=== PATIENT | male | born 1990 | race African-American/Black ===

== ENCOUNTER 2017-02-07 03:52 | Inpatient (IN) | payer MEDICAID ==
[~2017-02-07] VITALS: Ht 167.6 cm; Wt 45.4 kg
[~2017-02-07 03:52] MED LIST: EMTR1TAB11 PO; KEPP500 PO; SULF1TAB47 PO
[2017-02-07] MEDS ORDERED: ONDANSETRON HCL 4MG/2ML VIAL IV STA (04:30)
[2017-02-07] MEDS ORDERED: SODIUM CHLORIDE 0.9% 1000ML BAG (SEPSIS BOLUS) IV ONE (04:30)
[2017-02-07] MEDS ORDERED: MORPHINE SULFATE 4 MG/ML CPJ (NOT FOR IM USE) IV STA (04:30)
[2017-02-07 05:06] LABS: HEMATOCRIT. 30.7 % (42.0-52.0); HEMOGLOBIN. 9.8 g/dL (14.0-18.0); MEAN CORPUSCULAR HEMOGLOBIN 25.8 pg (28.0-32.0); MEAN CORPUSCULAR VOLUME 81.1 fL (80.0-94.0); MEAN PLATELET VOLUME 7.8 fl (7.4-10.4); PLATELET 261 x1000/uL (130-400); RED BLOOD CELL COUNT 3.79 mill/uL (4.7-6.1); RED CELL DISTRIBUTION WIDTH 17.4 % (11.6-14.6)
[2017-02-07 05:14] LABS: INR 1.1; PROTHROMBIN TIME 11.8 sec
[2017-02-07 05:19] LABS: CARBON DIOXIDE 28 mEq/L (21-32); CHLORIDE 98 mEq/L (98-107)
[2017-02-07 05:45] LABS: PLATELET ESTIMATE NORMAL
[2017-02-07 09:40] VITALS: BP 122/96
[2017-02-07] MEDS ORDERED: ONDANSETRON HCL 4MG/2ML VIAL IV PRN (11:15)
[2017-02-07] MEDS ORDERED: DOCUSATE SODIUM 100MG CAPSULE PO PRN (11:15)
[2017-02-07] MEDS ORDERED: MORPHINE SULFATE 2 MG/ML CPJ (NOT FOR IM USE) IV PRN (11:15)
[2017-02-07] MEDS ORDERED: HYDROCODONE/ACETAMINOPHEN 5/325MG TABLET PO PRN (11:15)
[2017-02-07] MEDS: SODIUM CHLORIDE 0.9% 1,000 ML IV SCH (11:30)
[2017-02-07 12:00] VITALS: BP 124/94
[2017-02-07] MEDS: FERROUS SULFATE 325MG TABLET PO SCH (12:28)
[2017-02-07] MEDS: MULTIVITAMINS,THER W-MINERALS TABLET PO SCH (12:29)
[2017-02-07] MEDS ORDERED: SULFAMETHOXAZOLE/TRIMETHOPRIM 400/80MG TAB PO SCH (12:30)
[2017-02-07] MEDS ORDERED: EMTRICITABINE 200MG CAPSULE PO SCH (14:00)
[2017-02-07] MEDS ORDERED: TENOFOVIR 300MG TABLET PO SCH (14:00)
[2017-02-07 16:00] VITALS: BP 113/83
[2017-02-07] MEDS: ACETAMINOPHEN 325MG TABLET PO PRN (16:58)
[2017-02-07] MEDS ORDERED: POTASSIUM CHLORIDE 20MEQ TABLET SR PO NR (18:15)
[2017-02-07 20:00] VITALS: BP 107/81
[2017-02-07] MEDS: LEVETIRACETAM 500MG TABLET PO SCH (20:26)
[2017-02-07] MEDS: MORPHINE SULFATE 2 MG/ML CPJ (NOT FOR IM USE) IV PRN (20:27)
[2017-02-07] MEDS ORDERED: ZOLPIDEM TARTRATE 5MG TABLET PO PRN (21:00)
[2017-02-08] VITALS: BP 108/76
[2017-02-08 04:00] VITALS: BP 111/88
[2017-02-08] MEDS: SODIUM CHLORIDE 0.9% 500 ML IV SCH ×2 (05:09→10:32)
[2017-02-08 06:50] LABS: HEMATOCRIT. 30.2 % (42.0-52.0); HEMOGLOBIN. 9.8 g/dL (14.0-18.0); MEAN CORPUSCULAR HEMOGLOBIN 26.2 pg (28.0-32.0); MEAN PLATELET VOLUME 7.9 fl (7.4-10.4); PLATELET 296 x1000/uL (130-400); RED BLOOD CELL COUNT 3.72 mill/uL (4.7-6.1); RED CELL DISTRIBUTION WIDTH 17.6 % (11.6-14.6)
[2017-02-08] MEDS: OMEPRAZOLE 20MG CAPSULE EXTENDED RELEASE PO SCH (07:03)
[2017-02-08 07:15] LABS: CARBON DIOXIDE 28 mEq/L (21-32); CHLORIDE 97 mEq/L (98-107); PHOSPHORUS 2.9 mg/dL (2.5-4.9)
[2017-02-08] MEDS: ACETAMINOPHEN 325MG TABLET PO SCH (07:30)
[2017-02-08 08:00] VITALS: BP 111/89
[2017-02-08] MEDS: AMPHOTERICIN B LIPOSOME IV SCH (08:00)
[2017-02-08] MEDS: DEXT 5% IV SCH (08:00)
[2017-02-08] MEDS: WATER IV SCH (08:00)
[2017-02-08] MEDS: FERROUS SULFATE 325MG TABLET PO SCH (08:17)
[2017-02-08] MEDS: MULTIVITAMINS,THER W-MINERALS TABLET PO SCH (08:18)
[2017-02-08] MEDS: LEVETIRACETAM 500MG TABLET PO SCH ×2 (08:18→22:07)
[2017-02-08] MEDS: MORPHINE SULFATE 2 MG/ML CPJ (NOT FOR IM USE) IV PRN ×2 (08:57→14:41)
[2017-02-08] MEDS ORDERED: AZITHROMYCIN 500 MG TABLET PO SCH (09:00)
[2017-02-08] MEDS ORDERED: MEDICATION NOT ON FORMULARY EA (Emtricitabine/Tenofovir (Truvada 200 Mg-300 Mg Tablet) 1 PO SCH (09:00)
[2017-02-08] MEDS ORDERED: FLUCYTOSINE PO SCH (09:00)
[2017-02-08 09:58] LABS: PLATELET ESTIMATE NORMAL
[2017-02-08 11:52] VITALS: BP 125/87
[2017-02-08] MEDS: SODIUM CHLORIDE 0.9% 1,000 ML IV SCH ×2 (13:21)
[2017-02-08] MEDS: SULFAMETHOXAZOLE/TRIMETHOPRIM 800/160MG TABLET PO SCH (13:23)
[2017-02-08] MEDS ORDERED: MAGNESIUM 2 G PREMIX 50 ML IV NR (14:00)
[2017-02-08 16:00] VITALS: BP 125/93
[2017-02-08 20:00] VITALS: BP 114/85
[2017-02-09] VITALS: BP 126/94
[2017-02-09 04:00] VITALS: BP 122/88
[2017-02-09] MEDS: SODIUM CHLORIDE 0.9% 500 ML IV SCH ×3 (04:23→12:20)
[2017-02-09] MEDS: SODIUM CHLORIDE 0.9% 1,000 ML IV SCH (04:24)
[2017-02-09] MEDS: MORPHINE SULFATE 2 MG/ML CPJ (NOT FOR IM USE) IV PRN ×3 (04:38→20:30)
[2017-02-09] MEDS: OMEPRAZOLE 20MG CAPSULE EXTENDED RELEASE PO SCH (06:44)
[2017-02-09] MEDS: FERROUS SULFATE 325MG TABLET PO SCH (08:06)
[2017-02-09] MEDS: LEVETIRACETAM 500MG TABLET PO SCH ×2 (08:06→20:28)
[2017-02-09] MEDS: ACETAMINOPHEN 325MG TABLET PO SCH (08:06)
[2017-02-09] MEDS: WATER IV SCH (08:14)
[2017-02-09] MEDS: AMPHOTERICIN B LIPOSOME IV SCH (08:14)
[2017-02-09] MEDS: DEXT 5% IV SCH (08:14)
[2017-02-09] MEDS: MULTIVITAMINS,THER W-MINERALS TABLET PO SCH (10:09)
[2017-02-09 12:00] VITALS: BP 106/78
[2017-02-09] MEDS: SULFAMETHOXAZOLE/TRIMETHOPRIM 800/160MG TABLET PO SCH (12:20)
[2017-02-09 16:00] VITALS: BP 130/90
[2017-02-09 20:00] VITALS: BP 129/96
[2017-02-10] VITALS: BP 118/91
[2017-02-10] MEDS: MORPHINE SULFATE 2 MG/ML CPJ (NOT FOR IM USE) IV PRN ×6 (01:19→21:27)
[2017-02-10] MEDS: SODIUM CHLORIDE 0.9% 1,000 ML IV SCH ×2 (02:00→14:35)
[2017-02-10 04:00] VITALS: BP 137/99
[2017-02-10] MEDS: SODIUM CHLORIDE 0.9% 500 ML IV SCH (05:29)
[2017-02-10] MEDS: OMEPRAZOLE 20MG CAPSULE EXTENDED RELEASE PO SCH (06:20)
[2017-02-10 07:36] VITALS: BP 138/100
[2017-02-10] MEDS: FERROUS SULFATE 325MG TABLET PO SCH (08:49)
[2017-02-10] MEDS: MULTIVITAMINS,THER W-MINERALS TABLET PO SCH (08:49)
[2017-02-10] MEDS: LEVETIRACETAM 500MG TABLET PO SCH ×2 (08:50→21:25)
[2017-02-10] MEDS: ACETAMINOPHEN 325MG TABLET PO SCH (08:50)
[2017-02-10] MEDS: AMPHOTERICIN B LIPOSOME IV SCH (09:31)
[2017-02-10] MEDS: DEXT 5% IV SCH (09:31)
[2017-02-10] MEDS: WATER IV SCH (09:31)
[2017-02-10 12:00] VITALS: BP 113/76
[2017-02-10] MEDS: SULFAMETHOXAZOLE/TRIMETHOPRIM 800/160MG TABLET PO SCH (13:18)
[2017-02-10 16:09] VITALS: BP 126/90
[2017-02-10 20:00] VITALS: BP 118/93
[2017-02-11] VITALS: BP 124/100
[2017-02-11] MEDS: MORPHINE SULFATE 2 MG/ML CPJ (NOT FOR IM USE) IV PRN ×5 (00:35→19:40)
[2017-02-11 04:00] VITALS: BP 136/89
[2017-02-11] MEDS: ACETAMINOPHEN 325MG TABLET PO SCH (06:50)
[2017-02-11] MEDS: OMEPRAZOLE 20MG CAPSULE EXTENDED RELEASE PO SCH (06:50)
[2017-02-11] MEDS: SODIUM CHLORIDE 0.9% 500 ML IV SCH ×2 (06:50→09:57)
[2017-02-11 07:35] VITALS: BP 127/97
[2017-02-11] MEDS: AMPHOTERICIN B LIPOSOME IV SCH (08:46)
[2017-02-11] MEDS: WATER IV SCH (08:46)
[2017-02-11] MEDS: FERROUS SULFATE 325MG TABLET PO SCH (08:46)
[2017-02-11] MEDS: DEXT 5% IV SCH (08:46)
[2017-02-11] MEDS: MULTIVITAMINS,THER W-MINERALS TABLET PO SCH (08:46)
[2017-02-11] MEDS: LEVETIRACETAM 500MG TABLET PO SCH ×2 (08:46→20:39)
[2017-02-11 10:53] LABS: HEMATOCRIT. 31.3 % (42.0-52.0); MEAN CORPUSCULAR HEMOGLOBIN 26.2 pg (28.0-32.0); MEAN CORPUSCULAR VOLUME 81.9 fL (80.0-94.0); MEAN PLATELET VOLUME 7.8 fl (7.4-10.4); PLATELET 317 x1000/uL (130-400); RED BLOOD CELL COUNT 3.82 mill/uL (4.7-6.1); RED CELL DISTRIBUTION WIDTH 18.2 % (11.6-14.6)
[2017-02-11 11:24] LABS: CARBON DIOXIDE 27 mEq/L (21-32); CHLORIDE 99 mEq/L (98-107)
[2017-02-11 11:26] LABS: PLATELET ESTIMATE NORMAL
[2017-02-11] MEDS: SULFAMETHOXAZOLE/TRIMETHOPRIM 800/160MG TABLET PO SCH (11:36)
[2017-02-11 11:58] VITALS: BP 117/88
[2017-02-11] MEDS: SODIUM CHLORIDE 0.9% 1,000 ML IV SCH (15:47)
[2017-02-11 16:03] VITALS: BP 119/95
[2017-02-11 20:00] VITALS: BP 103/78
[2017-02-12 00:04] VITALS: BP 106/81
[2017-02-12] MEDS: MORPHINE SULFATE 2 MG/ML CPJ (NOT FOR IM USE) IV PRN ×6 (00:30→21:42)
[2017-02-12 04:00] VITALS: BP 129/95
[2017-02-12] MEDS: SODIUM CHLORIDE 0.9% 500 ML IV SCH ×2 (04:35→11:31)
[2017-02-12 07:17] LABS: HEMATOCRIT. 31.7 % (42.0-52.0); HEMOGLOBIN. 10.1 g/dL (14.0-18.0); MEAN CORPUSCULAR HEMOGLOBIN 26.4 pg (28.0-32.0); MEAN PLATELET VOLUME 8.5 fl (7.4-10.4); PLATELET 251 x1000/uL (130-400); RED BLOOD CELL COUNT 3.82 mill/uL (4.7-6.1); RED CELL DISTRIBUTION WIDTH 18.5 % (11.6-14.6)
[2017-02-12 07:57] LABS: CARBON DIOXIDE 28 mEq/L (21-32); CHLORIDE 100 mEq/L (98-107)
[2017-02-12 08:00] VITALS: BP 121/86
[2017-02-12 08:00] LABS: PHOSPHORUS 4.3 mg/dL (2.5-4.9)
[2017-02-12] MEDS: ACETAMINOPHEN 325MG TABLET PO SCH (08:19)
[2017-02-12] MEDS: FERROUS SULFATE 325MG TABLET PO SCH (08:19)
[2017-02-12] MEDS: FAMOTIDINE 20MG TABLET PO SCH (08:20)
[2017-02-12] MEDS: LEVETIRACETAM 500MG TABLET PO SCH ×2 (08:20→21:42)
[2017-02-12] MEDS: SULFAMETHOXAZOLE/TRIMETHOPRIM 800/160MG TABLET PO SCH (08:21)
[2017-02-12] MEDS: WATER IV SCH (08:21)
[2017-02-12] MEDS: DEXT 5% IV SCH (08:21)
[2017-02-12] MEDS: AMPHOTERICIN B LIPOSOME IV SCH (08:21)
[2017-02-12] MEDS: MULTIVITAMINS,THER W-MINERALS TABLET PO SCH (08:25)
[2017-02-12 08:45] LABS: PLATELET ESTIMATE NORMAL
[2017-02-12 12:00] VITALS: BP 124/81
[2017-02-12 16:00] VITALS: BP 128/100
[2017-02-12 20:00] VITALS: BP 139/89
[2017-02-13] VITALS (7 sets, daily range): BP systolic 121–140; BP diastolic 85–106
[2017-02-13] MEDS: SODIUM CHLORIDE 0.9% 1,000 ML IV SCH (05:01)
[2017-02-13] MEDS: SODIUM CHLORIDE 0.9% 500 ML IV SCH ×2 (05:01→13:45)
[2017-02-13] MEDS: MORPHINE SULFATE 2 MG/ML CPJ (NOT FOR IM USE) IV PRN ×5 (06:29→21:28)
[2017-02-13] MEDS: ACETAMINOPHEN 325MG TABLET PO SCH (06:32)
[2017-02-13] MEDS: FERROUS SULFATE 325MG TABLET PO SCH (08:29)
[2017-02-13] MEDS: FAMOTIDINE 20MG TABLET PO SCH (08:30)
[2017-02-13] MEDS: LEVETIRACETAM 500MG TABLET PO SCH ×2 (08:30→21:28)
[2017-02-13] MEDS: MULTIVITAMINS,THER W-MINERALS TABLET PO SCH (08:30)
[2017-02-13] MEDS: SULFAMETHOXAZOLE/TRIMETHOPRIM 800/160MG TABLET PO SCH (08:30)
[2017-02-13] MEDS: DEXT 5% IV SCH (09:54)
[2017-02-13] MEDS: WATER IV SCH (09:54)
[2017-02-13] MEDS: AMPHOTERICIN B LIPOSOME IV SCH (09:54)
[2017-02-14] MEDS: HYDROCODONE/ACETAMINOPHEN 5/325MG TABLET PO PRN ×2 (00:17→08:23)
[2017-02-14 04:15] VITALS: BP 129/88
[2017-02-14] MEDS: SODIUM CHLORIDE 0.9% 500 ML IV SCH ×2 (04:40→12:02)
[2017-02-14] MEDS: MORPHINE SULFATE 2 MG/ML CPJ (NOT FOR IM USE) IV PRN ×3 (05:35→21:14)
[2017-02-14] MEDS: ACETAMINOPHEN 325MG TABLET PO SCH (06:58)
[2017-02-14 07:35] LABS: HEMATOCRIT. 30.1 % (42.0-52.0); HEMOGLOBIN. 9.7 g/dL (14.0-18.0); MEAN CORPUSCULAR HEMOGLOBIN 26.5 pg (28.0-32.0); MEAN CORPUSCULAR VOLUME 82.7 fL (80.0-94.0); MEAN PLATELET VOLUME 7.5 fl (7.4-10.4); PLATELET 240 x1000/uL (130-400); RED BLOOD CELL COUNT 3.64 mill/uL (4.7-6.1); RED CELL DISTRIBUTION WIDTH 18.1 % (11.6-14.6)
[2017-02-14 07:51] LABS: CARBON DIOXIDE 30 mEq/L (21-32); CHLORIDE 100 mEq/L (98-107); PHOSPHORUS 4.5 mg/dL (2.5-4.9)
[2017-02-14 08:00] VITALS: BP 134/106
[2017-02-14] MEDS: MULTIVITAMINS,THER W-MINERALS TABLET PO SCH (08:19)
[2017-02-14] MEDS: FAMOTIDINE 20MG TABLET PO SCH (08:19)
[2017-02-14] MEDS: FERROUS SULFATE 325MG TABLET PO SCH (08:19)
[2017-02-14] MEDS: WATER IV SCH (08:19)
[2017-02-14] MEDS: DEXT 5% IV SCH (08:19)
[2017-02-14] MEDS: LEVETIRACETAM 500MG TABLET PO SCH ×2 (08:19→21:14)
[2017-02-14] MEDS: AMPHOTERICIN B LIPOSOME IV SCH (08:19)
[2017-02-14] MEDS: SULFAMETHOXAZOLE/TRIMETHOPRIM 800/160MG TABLET PO SCH (08:20)
[2017-02-14 13:16] VITALS: BP 117/99
[2017-02-14 13:58] LABS: PLATELET ESTIMATE NORMAL
[2017-02-14 17:45] VITALS: BP 116/86
[2017-02-14 20:00] VITALS: BP 125/87
[2017-02-14] MEDS: DIPHENHYDRAMINE 50MG/ML VIAL IV PRN (21:15)
[2017-02-15] VITALS: BP 130/94
[2017-02-15 04:00] VITALS: BP 125/91
[2017-02-15] MEDS: SODIUM CHLORIDE 0.9% 500 ML IV SCH ×2 (05:33→13:32)
[2017-02-15] MEDS: MORPHINE SULFATE 2 MG/ML CPJ (NOT FOR IM USE) IV PRN ×4 (05:34→19:59)
[2017-02-15] MEDS: ACETAMINOPHEN 325MG TABLET PO SCH (06:37)
[2017-02-15 08:00] VITALS: BP 116/88
[2017-02-15 08:44] LABS: HEMATOCRIT. 31.2 % (42.0-52.0); HEMOGLOBIN. 10.3 g/dL (14.0-18.0); MEAN PLATELET VOLUME 7.7 fl (7.4-10.4); PLATELET 236 x1000/uL (130-400); RED BLOOD CELL COUNT 3.81 mill/uL (4.7-6.1); RED CELL DISTRIBUTION WIDTH 18.7 % (11.6-14.6)
[2017-02-15 08:55] LABS: CARBON DIOXIDE 28 mEq/L (21-32); CHLORIDE 100 mEq/L (98-107); PHOSPHORUS 4.7 mg/dL (2.5-4.9)
[2017-02-15] MEDS: FAMOTIDINE 20MG TABLET PO SCH (08:59)
[2017-02-15] MEDS: FERROUS SULFATE 325MG TABLET PO SCH (09:00)
[2017-02-15] MEDS: MULTIVITAMINS,THER W-MINERALS TABLET PO SCH (09:00)
[2017-02-15] MEDS: SULFAMETHOXAZOLE/TRIMETHOPRIM 800/160MG TABLET PO SCH (09:00)
[2017-02-15] MEDS: LEVETIRACETAM 500MG TABLET PO SCH ×2 (09:00→20:00)
[2017-02-15] MEDS ORDERED: AZITHROMYCIN 500 MG TABLET PO SCH (09:00)
[2017-02-15] MEDS: DEXT 5% IV SCH (09:02)
[2017-02-15] MEDS: AMPHOTERICIN B LIPOSOME IV SCH (09:02)
[2017-02-15] MEDS: WATER IV SCH (09:02)
[2017-02-15 09:27] LABS: PLATELET ESTIMATE NORMAL
[2017-02-15] MEDS: HYDROCODONE/ACETAMINOPHEN 5/325MG TABLET PO PRN (11:33)
[2017-02-15 11:56] VITALS: BP 119/89
[2017-02-15 16:00] VITALS: BP 118/91
[2017-02-15 20:00] VITALS: BP 109/84
[2017-02-15] MEDS: DIPHENHYDRAMINE 50MG/ML VIAL IV PRN (20:00)
[2017-02-16] VITALS: BP 120/90
[2017-02-16] MEDS: MORPHINE SULFATE 2 MG/ML CPJ (NOT FOR IM USE) IV PRN ×5 (00:59→21:40)
[2017-02-16] MEDS: HYDROCODONE/ACETAMINOPHEN 5/325MG TABLET PO PRN (02:11)
[2017-02-16] MEDS: DIPHENHYDRAMINE 50MG/ML VIAL IV PRN (03:26)
[2017-02-16 04:00] VITALS: BP 124/95
[2017-02-16] MEDS: SODIUM CHLORIDE 0.9% 500 ML IV SCH ×2 (05:57→11:06)
[2017-02-16 06:26] LABS: HEMATOCRIT. 28.6 % (42.0-52.0); HEMOGLOBIN. 9.1 g/dL (14.0-18.0); MEAN CORPUSCULAR HEMOGLOBIN 26.2 pg (28.0-32.0); MEAN CORPUSCULAR VOLUME 82.2 fL (80.0-94.0); MEAN PLATELET VOLUME 7.8 fl (7.4-10.4); PLATELET 226 x1000/uL (130-400); RED BLOOD CELL COUNT 3.48 mill/uL (4.7-6.1); RED CELL DISTRIBUTION WIDTH 19.3 % (11.6-14.6)
[2017-02-16 06:58] LABS: CARBON DIOXIDE 27 mEq/L (21-32); CHLORIDE 101 mEq/L (98-107); PHOSPHORUS 3.7 mg/dL (2.5-4.9)
[2017-02-16] MEDS: ACETAMINOPHEN 325MG TABLET PO SCH (07:00)
[2017-02-16 08:00] VITALS: BP 134/107
[2017-02-16] MEDS: WATER IV SCH (08:26)
[2017-02-16] MEDS: DEXT 5% IV SCH (08:26)
[2017-02-16] MEDS: AMPHOTERICIN B LIPOSOME IV SCH (08:26)
[2017-02-16] MEDS: FAMOTIDINE 20MG TABLET PO SCH (08:35)
[2017-02-16] MEDS: LEVETIRACETAM 500MG TABLET PO SCH ×2 (08:35→21:37)
[2017-02-16] MEDS: FERROUS SULFATE 325MG TABLET PO SCH (08:35)
[2017-02-16] MEDS: MULTIVITAMINS,THER W-MINERALS TABLET PO SCH (08:35)
[2017-02-16] MEDS: SULFAMETHOXAZOLE/TRIMETHOPRIM 800/160MG TABLET PO SCH (08:38)
[2017-02-16 10:10] LABS: PLATELET ESTIMATE NORMAL
[2017-02-16 12:00] VITALS: BP 118/90
[2017-02-16 16:00] VITALS: BP 120/93
[2017-02-16] MEDS: ACETAMINOPHEN 325MG TABLET PO PRN (19:09)
[2017-02-16 20:00] VITALS: BP 134/104
[2017-02-17] VITALS: BP 121/97
[2017-02-17] MEDS: HYDROCODONE/ACETAMINOPHEN 5/325MG TABLET PO PRN ×2 (00:38→11:03)
[2017-02-17 04:00] VITALS: BP 130/96
[2017-02-17] MEDS: SODIUM CHLORIDE 0.9% 500 ML IV SCH ×2 (05:02→08:40)
[2017-02-17] MEDS: MORPHINE SULFATE 2 MG/ML CPJ (NOT FOR IM USE) IV PRN ×2 (05:03→08:33)
[2017-02-17] MEDS: AMPHOTERICIN B LIPOSOME IV SCH (08:08)
[2017-02-17] MEDS: DEXT 5% IV SCH (08:08)
[2017-02-17] MEDS: WATER IV SCH (08:08)
[2017-02-17 08:11] VITALS: BP 121/91
[2017-02-17] MEDS: MULTIVITAMINS,THER W-MINERALS TABLET PO SCH (08:31)
[2017-02-17] MEDS: SULFAMETHOXAZOLE/TRIMETHOPRIM 800/160MG TABLET PO SCH (08:31)
[2017-02-17] MEDS: FAMOTIDINE 20MG TABLET PO SCH (08:31)
[2017-02-17] MEDS: LEVETIRACETAM 500MG TABLET PO SCH ×2 (08:31→20:39)
[2017-02-17] MEDS: FERROUS SULFATE 325MG TABLET PO SCH (08:31)
[2017-02-17] MEDS: ACETAMINOPHEN 325MG TABLET PO SCH (08:32)
[2017-02-17 12:00] VITALS: BP 122/78
[2017-02-17] MEDS ORDERED: HYDROCODONE/ACETAMINOPHEN 10/325MG TABLET PO PRN (14:45)
[2017-02-17] MEDS: HYDROCODONE/ACETAMINOPHEN 10/325MG TABLET PO PRN ×2 (15:20→20:40)
[2017-02-17 16:20] VITALS: BP 117/86
[2017-02-17 18:26] LABS: HEMATOCRIT. 28.2 % (42.0-52.0); HEMOGLOBIN. 8.9 g/dL (14.0-18.0); MEAN CORPUSCULAR HEMOGLOBIN 26.3 pg (28.0-32.0); MEAN CORPUSCULAR VOLUME 82.9 fL (80.0-94.0); MEAN PLATELET VOLUME 7.7 fl (7.4-10.4); PLATELET 192 x1000/uL (130-400); RED CELL DISTRIBUTION WIDTH 19.4 % (11.6-14.6)
[2017-02-17 18:36] LABS: CARBON DIOXIDE 29 mEq/L (21-32); CHLORIDE 103 mEq/L (98-107); PHOSPHORUS 3.5 mg/dL (2.5-4.9)
[2017-02-17 20:00] VITALS: BP 132/94
[2017-02-17 21:51] LABS: PLATELET ESTIMATE NORMAL
[2017-02-18] VITALS: BP 117/88
[2017-02-18] MEDS: HYDROCODONE/ACETAMINOPHEN 10/325MG TABLET PO PRN ×3 (01:07→21:31)
[2017-02-18 04:00] VITALS: BP 114/97
[2017-02-18] MEDS: SODIUM CHLORIDE 0.9% 500 ML IV SCH ×2 (04:18→09:31)
[2017-02-18] MEDS: ACETAMINOPHEN 325MG TABLET PO SCH (06:30)
[2017-02-18 08:00] VITALS: BP 123/90
[2017-02-18] MEDS: WATER IV SCH (08:00)
[2017-02-18] MEDS: AMPHOTERICIN B LIPOSOME IV SCH (08:00)
[2017-02-18] MEDS: DEXT 5% IV SCH (08:00)
[2017-02-18] MEDS: MULTIVITAMINS,THER W-MINERALS TABLET PO SCH (08:57)
[2017-02-18] MEDS: FAMOTIDINE 20MG TABLET PO SCH (08:57)
[2017-02-18] MEDS: FERROUS SULFATE 325MG TABLET PO SCH (08:57)
[2017-02-18] MEDS: LEVETIRACETAM 500MG TABLET PO SCH ×2 (08:57→20:26)
[2017-02-18] MEDS: SULFAMETHOXAZOLE/TRIMETHOPRIM 800/160MG TABLET PO SCH (08:57)
[2017-02-18 12:00] VITALS: BP 112/70
[2017-02-18 16:00] VITALS: BP 120/80
[2017-02-18 19:52] VITALS: BP 109/80
[2017-02-18] MEDS ORDERED: DEXT 5% IV NR (23:30)
[2017-02-18] MEDS ORDERED: WATER IV NR (23:30)
[2017-02-18] MEDS ORDERED: AMPHOTERICIN B LIPOSOME IV NR (23:30)
[2017-02-18] MEDS ORDERED: SODIUM CHLORIDE 0.9% 500 ML IV NR (23:30)
[2017-02-19 00:02] VITALS: BP 104/86
[2017-02-19] MEDS: HYDROCODONE/ACETAMINOPHEN 10/325MG TABLET PO PRN ×4 (01:41→21:01)
[2017-02-19] MEDS: AMPHOTERICIN B LIPOSOME IV SCH (03:26)
[2017-02-19] MEDS: DEXT 5% IV SCH (03:26)
[2017-02-19] MEDS: WATER IV SCH (03:26)
[2017-02-19 04:00] VITALS: BP 124/90
[2017-02-19] MEDS ORDERED: SODIUM CHLORIDE 0.9% 500 ML IV NR (04:30)
[2017-02-19] MEDS: SODIUM CHLORIDE 0.9% 500 ML IV SCH ×2 (05:55→10:22)
[2017-02-19] MEDS: ACETAMINOPHEN 325MG TABLET PO SCH (06:30)
[2017-02-19 08:00] VITALS: BP 128/89
[2017-02-19] MEDS: MULTIVITAMINS,THER W-MINERALS TABLET PO SCH (08:16)
[2017-02-19] MEDS: LEVETIRACETAM 500MG TABLET PO SCH ×2 (08:16→21:00)
[2017-02-19] MEDS: FERROUS SULFATE 325MG TABLET PO SCH (08:16)
[2017-02-19] MEDS: FAMOTIDINE 20MG TABLET PO SCH (08:16)
[2017-02-19] MEDS: SULFAMETHOXAZOLE/TRIMETHOPRIM 800/160MG TABLET PO SCH (08:17)
[2017-02-19 11:35] LABS: PHOSPHORUS 3.4 mg/dL (2.5-4.9)
[2017-02-19 12:00] VITALS: BP 133/96
[2017-02-19 16:00] VITALS: BP 134/95
[2017-02-19 20:00] VITALS: BP 138/94
[2017-02-20] VITALS: BP 134/97
[2017-02-20 04:00] VITALS: BP 133/88
[2017-02-20] MEDS: SODIUM CHLORIDE 0.9% 500 ML IV SCH ×2 (04:50→12:22)
[2017-02-20] MEDS: HYDROCODONE/ACETAMINOPHEN 10/325MG TABLET PO PRN ×3 (04:51→20:24)
[2017-02-20 06:47] LABS: HEMATOCRIT. 29.4 % (42.0-52.0); HEMOGLOBIN. 9.4 g/dL (14.0-18.0); MEAN CORPUSCULAR VOLUME 84.7 fL (80.0-94.0); PLATELET 193 x1000/uL (130-400); RED BLOOD CELL COUNT 3.47 mill/uL (4.7-6.1)
[2017-02-20] MEDS: ACETAMINOPHEN 325MG TABLET PO SCH (07:30)
[2017-02-20 07:41] LABS: CARBON DIOXIDE 30 mEq/L (21-32); CHLORIDE 102 mEq/L (98-107); PHOSPHORUS 3.7 mg/dL (2.5-4.9)
[2017-02-20 08:00] VITALS: BP 126/66
[2017-02-20] MEDS: MULTIVITAMINS,THER W-MINERALS TABLET PO SCH (08:10)
[2017-02-20] MEDS: FERROUS SULFATE 325MG TABLET PO SCH (08:10)
[2017-02-20] MEDS: FAMOTIDINE 20MG TABLET PO SCH (08:10)
[2017-02-20] MEDS: LEVETIRACETAM 500MG TABLET PO SCH ×2 (08:10→20:23)
[2017-02-20] MEDS: SULFAMETHOXAZOLE/TRIMETHOPRIM 800/160MG TABLET PO SCH (08:10)
[2017-02-20] MEDS: DEXT 5% IV SCH (08:41)
[2017-02-20] MEDS: WATER IV SCH (08:41)
[2017-02-20] MEDS: AMPHOTERICIN B LIPOSOME IV SCH (08:41)
[2017-02-20 12:00] VITALS: BP 122/60
[2017-02-20 12:57] LABS: PLATELET ESTIMATE NORMAL
[2017-02-20 16:00] VITALS: BP 132/91
[2017-02-20 20:00] VITALS: BP 120/94
[2017-02-21] VITALS: BP 131/94
[2017-02-21] MEDS: HYDROCODONE/ACETAMINOPHEN 10/325MG TABLET PO PRN ×4 (02:31→22:56)
[2017-02-21 04:00] VITALS: BP 128/99
[2017-02-21] MEDS: SODIUM CHLORIDE 0.9% 500 ML IV SCH ×2 (05:08→10:11)
[2017-02-21] MEDS: ACETAMINOPHEN 325MG TABLET PO SCH (07:30)
[2017-02-21 08:00] VITALS: BP 114/87
[2017-02-21] MEDS: WATER IV SCH (08:00)
[2017-02-21] MEDS: DEXT 5% IV SCH (08:00)
[2017-02-21] MEDS: AMPHOTERICIN B LIPOSOME IV SCH (08:00)
[2017-02-21] MEDS: LEVETIRACETAM 500MG TABLET PO SCH ×2 (08:18→22:56)
[2017-02-21] MEDS: SULFAMETHOXAZOLE/TRIMETHOPRIM 800/160MG TABLET PO SCH (08:18)
[2017-02-21] MEDS: FERROUS SULFATE 325MG TABLET PO SCH (08:18)
[2017-02-21] MEDS: FAMOTIDINE 20MG TABLET PO SCH (08:18)
[2017-02-21] MEDS: MULTIVITAMINS,THER W-MINERALS TABLET PO SCH (08:18)
[2017-02-21 12:49] VITALS: BP 101/72
[2017-02-21 16:05] VITALS: BP 112/92
[2017-02-21 20:00] VITALS: BP 118/95
[2017-02-22] VITALS: BP 118/91
[2017-02-22] MEDS: HYDROCODONE/ACETAMINOPHEN 10/325MG TABLET PO PRN ×2 (04:03→09:28)
[2017-02-22 06:26] LABS: BASOPHILS % 0.9 % (0.0-2.0); EOSINOPHILS % 0.8 % (0.0-5.0); HEMATOCRIT. 33.2 % (42.0-52.0); HEMOGLOBIN. 10.4 g/dL (14.0-18.0); LYMPHOCYTES % 34.4 % (20.0-50.0); MEAN CORPUSCULAR VOLUME 85.9 fL (80.0-94.0); MEAN PLATELET VOLUME 7.9 fl (7.4-10.4); MONOCYTES % 10.6 % (2.0-8.0); NEUTROPHILS % 53.3 % (40.0-76.0); PLATELET 175 x1000/uL (130-400); RED BLOOD CELL COUNT 3.86 mill/uL (4.7-6.1); RED CELL DISTRIBUTION WIDTH 20.8 % (11.6-14.6)
[2017-02-22 07:25] LABS: CARBON DIOXIDE 30 mEq/L (21-32); CHLORIDE 105 mEq/L (98-107); PHOSPHORUS 4.2 mg/dL (2.5-4.9)
[2017-02-22 08:36] VITALS: BP 118/91
[2017-02-22] MEDS ORDERED: SULFAMETHOXAZOLE/TRIMETHOPRIM 800/160MG TABLET PO SCH (09:00)
[2017-02-22] MEDS ORDERED: AZITHROMYCIN 500 MG TABLET PO SCH (09:00)
[2017-02-22] MEDS ORDERED: FLUCONAZOLE 200MG TABLET PO SCH (09:00)
[2017-02-22] MEDS: FERROUS SULFATE 325MG TABLET PO SCH (09:21)
[2017-02-22] MEDS: FAMOTIDINE 20MG TABLET PO SCH (09:24)
[2017-02-22] MEDS: LEVETIRACETAM 500MG TABLET PO SCH (09:24)
[2017-02-22] MEDS: MULTIVITAMINS,THER W-MINERALS TABLET PO SCH (09:25)
[2017-02-22 16:03] VITALS: BP 102/71
[2017-02-22 16:05] VITALS: BP 102/71
== END 2017-02-22 18:40 | disposition hospice, home (50) | DRG 892 ==
LOC: ER 03:52 → 8WST 05:22
PROVIDERS: ADMIT Family Medicine Adult Medicine; ATTEND Family Medicine Adult Medicine
DX: B20 Human immunodeficiency virus [HIV] disease (principal); B45.1 Cerebral cryptococcosis; E41 Nutritional marasmus; C46.0 Kaposi's sarcoma of skin; E87.2 Acidosis; E87.1 Hypo-osmolality and hyponatremia; E43 Unspecified severe protein-calorie malnutrition; D72.819 Decreased white blood cell count, unspecified; Z51.5 Encounter for palliative care; G89.29 Other chronic pain; D50.9 Iron deficiency anemia, unspecified; E87.6 Hypokalemia; G40.909 Epilepsy, unspecified, not intractable, without status epilepticus; R62.7 Adult failure to thrive; H54.8 Legal blindness, as defined in USA; Z68.1 Body mass index [BMI] 19.9 or less, adult; Z79.899 Other long term (current) drug therapy
CPT/HCPCS: 36415; 71010; 80048; 80053; 83605; 83735; 84100; 85025; 85610; 86850; 86900; 87040; 87106; 87804; 87899; 93005; 96361; 96374; 96375; 97163; 97166; 99285; C1893; J0289; J1200; J2270; J2405; J3475; J7030; J7040; J7050; J7060